=== PATIENT | male | born 1985 | race American Indian/Alaskan Native ===

== ENCOUNTER 2018-05-14 06:34 | Day surgery (SDC) | payer OTHER ==
[2018-05-14 07:11] VITALS: O2SAT 100
--- NOTE | 2018-05-14 08:32 | CP.SDSHP ---
Same Day Surgery H & P - History Proposed Procedure: EGD/colonoscopy Pre-Op Diagnosis: bloating, constipation - Allergies Allergies: Allergies No Known Allergies Allergy (Verified 05/13/18 09:36) - Physical Exam General Appearance: NAD Vital Signs: Vital Signs 05/14/18 06:40 Temperature 97.8 F Pulse Rate 60 Respiratory 19 Rate Blood Pressure 124/69 O2 Sat by Pulse 100 Oximetry Mental Status: Alert & Oriented x3 Neuro: WNL Heart: WNL Lungs: WNL GI: WNL - {Optional Preform as Required} Abdomen: WNL - Impression Pt. Evaluated Today:Candidate for Anesthesia & Procedure: Yes - Date & Time Date: 05/14/18 Time: 08:32 Short Stay Discharge - Short Stay Discharge Admitting Diagnosis/Reason for Visit: ABDOMINAL DISTENSION, CONSTIPATION Disposition: HOME/ ROUTINE
[2018-05-14] MEDS ORDERED: Propofol 10 mg/ml Inj (20 ML) ONE (08:34)
[2018-05-14] MEDS ORDERED: Midazolam 2 MG/2 ML VIAL ONE (08:34)
[2018-05-14 09:19] VITALS: TEMP 97.5
[2018-05-14 10:09] VITALS: BP 130/78; PULSE 56; RESP 17
== END 2018-05-14 10:05 | disposition home or self-care (01) ==
LOC: C.ENDO 06:34
PROVIDERS: ATTEND Internal Medicine Gastroenterology
DX: R14.0 Abdominal distension (gaseous) (principal); K59.00 Constipation, unspecified; K64.1 Second degree hemorrhoids; R10.13 Epigastric pain
CPT/HCPCS: 43239; 45378; 88305; J2001; J2250; J2704